=== PATIENT | female | born 1930 | race Caucasian/White ===

== ENCOUNTER 2017-12-31 01:10 | Inpatient (IN) ==
[2017-12-31] MEDS ORDERED: OXYCODONE Oral CONC 10 MG/0.5 ML ORAL.SYG SL PRN ×3 (03:04→11:47)
[2017-12-31] MEDS ORDERED: Naloxone 0.4 MG/ML INJ IVP PRN ×2 (03:04→11:47)
[2017-12-31] MEDS ORDERED: Ondansetron 4 MG/2 ML VIAL IVP PRN ×2 (03:04→11:47)
[2017-12-31] MEDS ORDERED: D5% in 0.45% NACL 1,000 ML IVC SCH (03:15)
--- NOTE | 2017-12-31 03:16 | Internal Med History&Physical ---
Date of Encounter: 12/31/17 Time of Encounter: 03:00 Internal Medicine - H&P: HPI Chief complaint: Right hip pain Admitted From: Home Plans for Post Hospital Care: Home History of present illness: Ms. Hester is a 87 year old female transferred from [place] emergency room for right hip fracture. Patient to present to emergency room for right hip pain. Past medical history is significant for hypothyroidism, GERD, and dementia. I saw patient in floor. Patient is awake alert, oriented 3. Patient told me she missed her steps and fell. She complained right hip pain. She denies loss of consciousness during fall. She denies head or neck injury. She denies other part of body having pain. Patient was found right hip fracture by x-ray in [facility] emergency room. Orthopedic surgery consult was called by ER. Patient was transferred to our hospital for further management. Patient denies chest pain, shortness of breath, nausea, or fever. Patient denies history of CAD, diabetes, COPD, CVA, or hypertension. I have discussed CODE STATUS with patient. Although there is a signed paper in the transfer documentation shows DNR CCA, Patient clearly told me that she would like to have CPR if cardiac arrest happens. Will place patient on full code. Past Med Surg Social Fam HX - Past Medical History Medical history: dementia, GERD, thyroid disease Psychiatric history: no psych history - Past Surgical History Surgical History: non-contributory - Social History Smoking Status: Never smoker Smokeless Tobacco Status: No Alcohol use: none Drug use: none - Family History Mother History Unknown: Yes Internal Medicine - H&P: Meds Acetaminophen [Tylenol] 650 mg PO Q4HR PRN 12/30/17 [History] Bisacodyl [Dulcolax] 10 mg RC DAILY 12/30/17 [History] Buspirone HCl [Buspar] 5 mg PO BID 12/30/17 [History] Gabapentin [Neurontin] 100 mg PO HS 12/30/17 [History] Guaifenesin [Tussin] 200 mg PO Q4H PRN 12/30/17 [History] HydrOXYzine 25 mg PO HS 12/30/17 [History] Levothyroxine [Synthroid] 100 mcg PO 0630 12/30/17 [History] Magnesium Citrate 296 ml PO PRN PRN 12/30/17 [History] Magnesium Hydroxide [Milk of Magnesia] 1,200 mg PO QAM PRN 12/30/17 [History] Meloxicam [Mobic] 7.5 mg PO DAILY 12/30/17 [History] Memantine HCl [Namenda Xr] 28 mg PO QAM 12/30/17 [History] Omeprazole [PriLOSEC] 40 mg PO DAILY 12/30/17 [History] Oxybutynin [Ditropan] 5 mg PO DAILY PRN 12/30/17 [History] Sennosides [Senna] 2 tab PO BID 12/30/17 [History] Sertraline [Zoloft] 25 mg PO DAILY 12/30/17 [History] Tramadol HCl [Ultram] 50 mg PO HS 12/30/17 [History] 3 Allergy/AdvReac Type Severity Reaction Status Date / Time Penicillins Allergy Unknown See Verified 12/09/16 11:38 Comments nitrofurantoin Allergy Anaphylaxis Verified 04/20/17 12:09 [From Macrobid] All Systems PM: A 10-system review of systems was performed and is negative for pertinent findings except as documented above in the HPI. - Constitutional General appearance: Present: A&O X 3, no acute distress, answers questions appropriately - Head Head exam: Present: atraumatic, normocephalic - Eye Eye exam: Present: PERRL, conjuntiva pink, sclera anicteric Pupils: Present: PERRL - Neck Neck exam general surgery: Present: supple, trachea midline. Absent: lymphadenopathy - Respiratory Respiratory exam: Present: CTAB. Absent: accessory muscle use, rales, rhonchi, wheezes - Cardiovascular Cardiovascular exam: Present: RRR, +S1, +S2. Absent: diastolic murmur, gallop, rubs, systolic murmur - GI/Abdominal GI/Abdominal exam: Present: normal bowel sounds, soft, no peritoneal signs. Absent: distended, tenderness - Extremities Exam Extremities exam: Present: warm, radial pulses palpable and symmetrical. Absent : calf tenderness, cyanotic, full ROM (Right hip Range of movement limited due to pain. Right popliteal pulse is 2+), pedal edema - Neurological Exam Neurological exam: Present: CN II-XII intact, oriented X3, no focal deficits. Absent: pronater drift, facial droop, speech deficit - Skin Skin exam: Present: dry, intact - Assessment and plan (1) DVT prophylaxis Current Visit: Yes Status: Acute Assessment and plan: EPCD, will start anticoagulation after surgery (or if orthopedic decided not doing surgery). (2) Closed right hip fracture Current Visit: No Status: Acute Assessment and plan: Patient has right hip fracture due to mechanical fall. - Place patient on nothing by mouth, IV fluid - Pain management - Orthopedic consult - EKG and chest x-ray for preoperative preparation. - CBC, BMP, PT/INR, Type/screen has been done in [facility] emergency room Qualifiers: Encounter type: initial encounter Qualified Code(s): S72.001A - Fracture of unspecified part of neck of right femur, initial encounter for closed fracture - Time Spent With Patient Total time spent is greater than 50% in coordination of care (as documented) at patient's floor/unit and/or counseling patient: 40 min Greater than 35 minutes
[2017-12-31] MEDS ORDERED: *HR* FentaNYL (PF) 100 MCG/2 ML VIAL ONE (07:47)
[2017-12-31] MEDS ORDERED: Lidocaine -MPF 2% 2 ML VIAL ONE (07:47)
[2017-12-31] MEDS ORDERED: *HR* Propofol 200 MG/20 ML VIAL IVP ONE ×2 (07:47→10:39)
--- NOTE | 2017-12-31 07:58 | Anesthesia Evaluation PreOp ---
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 History: Other (dementia) Other Medical History: Thyroid, GERD Anesthesia History: No Prior Anesthetic Complications Alcohol Use: none Drug use: none Medications and Allergies Acetaminophen [Tylenol] 650 mg PO Q4HR PRN 12/30/17 [History] Bisacodyl [Dulcolax] 10 mg RC DAILY 12/30/17 [History] Buspirone HCl [Buspar] 5 mg PO BID 12/30/17 [History] Gabapentin [Neurontin] 100 mg PO HS 12/30/17 [History] Guaifenesin [Tussin] 200 mg PO Q4H PRN 12/30/17 [History] HydrOXYzine 25 mg PO HS 12/30/17 [History] Levothyroxine [Synthroid] 100 mcg PO 0630 12/30/17 [History] Magnesium Citrate 296 ml PO PRN PRN 12/30/17 [History] Magnesium Hydroxide [Milk of Magnesia] 1,200 mg PO QAM PRN 12/30/17 [History] Meloxicam [Mobic] 7.5 mg PO DAILY 12/30/17 [History] Memantine HCl [Namenda Xr] 28 mg PO QAM 12/30/17 [History] Omeprazole [PriLOSEC] 40 mg PO DAILY 12/30/17 [History] Oxybutynin [Ditropan] 5 mg PO DAILY PRN 12/30/17 [History] Sennosides [Senna] 2 tab PO BID 12/30/17 [History] Sertraline [Zoloft] 25 mg PO DAILY 12/30/17 [History] Tramadol HCl [Ultram] 50 mg PO HS 12/30/17 [History] 3 Allergy/AdvReac Type Severity Reaction Status Date / Time Penicillins Allergy Unknown See Verified 12/09/16 11:38 Comments nitrofurantoin Allergy Anaphylaxis Verified 04/20/17 12:09 [From Macrobid] - Meds/Allergy Pre-op Review Medications Reviewed: Yes Allergies Reviewed: Yes Beta Blockers on Current Med List: No Anesthesia Results - Labs Laboratory Tests 12/31/17 12/31/17 12/31/17 00:25 00:25 00:25 WBC 9.1 Hgb 10.7 L Hct 32.1 L Plt Count 265 PT 11.0 INR 1.0 APTT 31.3 Sodium 136 Potassium 4.0 Chloride 104 Carbon Dioxide 27 BUN 18 Creatinine 1.17 Est GFR ( Amer) 53 L Est GFR (Non-Af Amer) 44 L BUN/Creatinine Ratio 15 Glucose 133 H Calculated Osmolality 286 Calcium 9.0 - Imaging EKG: report reviewed, image reviewed (SINUS RHYTHM WITH OCCASIONAL SUPRAVENTRICULAR PREMATURE COMPLEXES) Anesthesia Exam Last Vital Signs Temp 98.1 F 12/31/17 07:49 Pulse 67 12/31/17 07:49 Resp 16 12/31/17 07:49 BP 101/61 12/31/17 07:49 Pulse Ox 94 12/31/17 07:49 Weight: 61 kg NPO (# of Hours): > 8 hrs - HEENT Pupil (Motor): Pupils equal, EOMI Mallampati: III Teeth: Edentulous Oral Opening: Greater than 3 - FIRER ELECT[employer] LOCOMOT[employer] LOC: Oriented - Cardiac Rhythm: Regular Murmur: None - Pulmonary Breath Sounds: bilateral Clear Respiratory Effort: Symmetrical Anesthesia Assess/Plan ASA Score: 3 Modified Shubham Scale for Level of Consciousness: Cooperative, oriented, and tranquil Anesthetic Plan: General Monitoring Plan: Standard Monitors Recovery Plan: PACU
[2017-12-31] MEDS ORDERED: Acetaminophen 325 MG TABLET PO PRN ×2 (08:42→11:47)
--- NOTE | 2017-12-31 08:44 | Internal Med Progress Note ---
Date of Encounter: 12/31/17 Time of Encounter: 08:39 - Assessment and plan (1) Closed right hip fracture Current Visit: No Status: Acute Assessment and plan: Right hip impacted subcapital fracture due to a mechanical fall. - Orthopedic consulted, scheduled for surgery today NPO IVF oxycodone check a UA Qualifiers: Encounter type: initial encounter Qualified Code(s): S72.001A - Fracture of unspecified part of neck of right femur, initial encounter for closed fracture (2) Meningioma Current Visit: Yes Status: Acute Assessment and plan: MRI of the brain from March 2017 showed:Intraventricular lobulated mass centered at the left lateral ventricular trigone. The signal characteristics and location favor a meningioma, although the lobulated appearance is atypical. No evidence of flow void within the mass to suggest arteriovenous malformation. Lymphoma is considered less likely given the intraventricular location. There is no obstructive hydrocephalus. (3) Compression fracture Current Visit: Yes Status: Acute Assessment and plan: History of T12 vertebral compression fracture (4) Hypothyroidism Current Visit: Yes Status: Acute Assessment and plan: Continue levothyroxine Qualifiers: Hypothyroidism type: unspecified Qualified Code(s): E03.9 - Hypothyroidism , unspecified (5) DVT prophylaxis Current Visit: Yes Status: Acute Assessment and plan: EPCD - Time Spent With Patient Total time spent is greater than 50% in coordination of care (as documented) at patient's floor/unit and/or counseling patient: - Subjective Interval history: Complains of right hip pain, denies any chest pain or shortness of breath, no abdominal pain dysuria or diarrhea - Constitutional Vitals: Temp Pulse Resp BP Pulse Ox 98.1 F 67 16 101/61 94 12/31/17 07:49 12/31/17 07:49 12/31/17 07:49 12/31/17 07:49 12/31/17 07:49 General appearance: Present: A&O X 3, no acute distress, answers questions appropriately - Head Head exam: Present: atraumatic, normocephalic - Eye Eye exam: Present: PERRL, conjuntiva pink, sclera anicteric Pupils: Present: PERRL - Neck Neck exam general surgery: Present: supple, trachea midline. Absent: lymphadenopathy - Respiratory Respiratory exam: Present: CTAB. Absent: accessory muscle use, rales, rhonchi, wheezes - Cardiovascular Cardiovascular exam: Present: RRR, +S1, +S2. Absent: diastolic murmur, gallop, rubs, systolic murmur - GI/Abdominal GI/Abdominal exam: Present: normal bowel sounds, soft, no peritoneal signs. Absent: distended, tenderness - Extremities Exam Extremities exam: Present: warm, radial pulses palpable and symmetrical. Absent : calf tenderness, cyanotic, pedal edema Additional comments: Right hip swelling, no ecchymosis or deformities - Neurological Exam Neurological exam: Present: CN II-XII intact, oriented X3, no focal deficits. Absent: pronater drift, facial droop, speech deficit - Skin Skin exam: Present: dry, intact Internal Medicine: Result - Impressions Impressions Chest X-Ray 12/31/17 03:10 IMPRESSION: No acute disease. D/ / Jethro Samson MD / Jethro Samson MD Interpreting Provider: Jethro Samson MD Consult Discharge Plan - Plan Referrals: Justen Bryant MD [Primary Care Provider] -
[2017-12-31] MEDS ORDERED: Ringers Solution, Lactated 1,000 ML ONE (08:59)
--- NOTE | 2017-12-31 09:22 | Orthopedic Consult Note ---
Date of Encounter: 12/31/17 Time of Encounter: 09:20 Assessment and Plan (1) Closed right hip fracture Current Visit: No Status: Acute The diagnosis and treatment options were discussed with the patient. She has a valgus impacted subcapital right femoral neck fracture. She normally ambulance with a walker and so to enable her to get out of bed, ambulate and for pain control we do recommend surgical fixation of the fracture. The patient has elected to proceed with right hip percutaneous pinning at this time. The risks and benefits of the procedure were fully explained in detail, including but not limited to the risk of infection, neurovascular injury, continued pain or stiffness, failure of surgery, reinjury, or need for additional surgery, DVT, PE , general risks of anesthesia and loss of limb or life. No guarantees were given or implied and all questions were answered. The patient understands all the risks and does wish to proceed with written consent. Surgery will be scheduled in a timely manner. Qualifiers: Encounter type: initial encounter Qualified Code(s): S72.001A - Fracture of unspecified part of neck of right femur, initial encounter for closed fracture History of Present Illness HPI: Ms. Hester is a 87 year old female with a PMHx hypothyroidism, GERD, and dementia who had a mechanical fall at her assisted living facility last night. She had a fall onto her right side and had right hip pain afterwards. She states she tripped over the carpet when walking with her walker. She denies any chest pain, shortness of breath, or blacking out prior to the fall. She was brought in and transferred from the [facility] emergency room with a diagnosis of a right femoral neck fracture. Denies any pain in any other extremity. No chest pain, shortness of breath, neck pain or neuro symptoms currently. Typically ambulates in a walker. Past Med Surg Social Fam HX - Past Medical History Medical history: dementia, GERD, thyroid disease Psychiatric history: no psych history - Past Surgical History Surgical History: non-contributory - Social History Smoking Status: Never smoker Smokeless Tobacco Status: No Alcohol use: none Drug use: none - Family History Mother History Unknown: Yes Medications and Allergies Acetaminophen [Tylenol] 650 mg PO Q4HR PRN 12/30/17 [History] Bisacodyl [Dulcolax] 10 mg RC DAILY 12/30/17 [History] Buspirone HCl [Buspar] 5 mg PO BID 12/30/17 [History] Gabapentin [Neurontin] 100 mg PO HS 12/30/17 [History] Guaifenesin [Tussin] 200 mg PO Q4H PRN 12/30/17 [History] HydrOXYzine 25 mg PO HS 12/30/17 [History] Levothyroxine [Synthroid] 100 mcg PO 0630 12/30/17 [History] Magnesium Citrate 296 ml PO PRN PRN 12/30/17 [History] Magnesium Hydroxide [Milk of Magnesia] 1,200 mg PO QAM PRN 12/30/17 [History] Meloxicam [Mobic] 7.5 mg PO DAILY 12/30/17 [History] Memantine HCl [Namenda Xr] 28 mg PO QAM 12/30/17 [History] Omeprazole [PriLOSEC] 40 mg PO DAILY 12/30/17 [History] Oxybutynin [Ditropan] 5 mg PO DAILY PRN 12/30/17 [History] Sennosides [Senna] 2 tab PO BID 12/30/17 [History] Sertraline [Zoloft] 25 mg PO DAILY 12/30/17 [History] Tramadol HCl [Ultram] 50 mg PO HS 12/30/17 [History] 3 Allergy/AdvReac Type Severity Reaction Status Date / Time Penicillins Allergy Unknown See Verified 12/09/16 11:38 Comments nitrofurantoin Allergy Anaphylaxis Verified 04/20/17 12:09 [From Macrobid] All Systems Reviewed: The remainder of the systems were reviewed and are negative Physical Exam - Constitutional Vitals: Temp Pulse Resp BP Pulse Ox 98.1 F 67 16 101/61 94 12/31/17 07:49 12/31/17 07:49 12/31/17 07:49 12/31/17 07:49 12/31/17 07:49 Exam: Consult Exam: Constitutional -Vitals reviewed -The patient is well developed and well nourished. Psychiatric -The patient is fully alert and oriented x 3. Respiratory: -Respiratory effort normal Abdomen: -Soft abdomen -Non tender -Non distended: Left upper extremity: -No deformities. The overlying skin is intact. No obvious signs of acute trauma. -No tenderness to palpation throughout. -No significant pain with passive motion of the shoulder, elbow, wrist, and fingers within the limits of the bed. -Able to make an "OK" sign, cross the index and long fingers, and extend the thumb. -Sensation grossly intact to light touch throughout the median, radial, and ulnar distributions. -Radial pulse is present; Fingers have good capillary refill. Right upper extremity: -No deformities. The overlying skin is intact. No obvious signs of acute trauma. -No tenderness to palpation throughout. -No significant pain with passive motion of the shoulder, elbow, wrist, and fingers within the limits of the bed. -Able to make an "OK" sign, cross the index and long fingers, and extend the thumb. -Sensation grossly intact to light touch throughout the median, radial, and ulnar distributions. -Radial pulse is present; Fingers have good capillary refill. Left lower extremity: -No deformities. The overlying skin is intact. No obvious signs of acute trauma. -No tenderness to palpation throughout. -No pain with passive motion of the hip, knee, ankle, and toes within the limits of the bed. -No pain with axial loading of the thigh. -Able to dorsiflex and plantarflex the ankle and toes. -Sensation is grossly intact to light touch throughout the sural, saphenous, superficial peroneal, and deep peroneal distributions. -Toes have good capillary refill. Right lower extremity: -No deformities. The overlying skin is intact. No obvious signs of acute trauma. -No tenderness to palpation over the femur, knee, tibia foot or ankle. -Pain with logroll of the right hip and axial loading of the thigh -No pain with passive motion of the knee, ankle, and toes within the limits of the bed. -Able to dorsiflex and plantarflex the ankle and toes. -Sensation is grossly intact to light touch throughout the sural, saphenous, superficial peroneal, and deep peroneal distributions. -Toes have good capillary refill. Results - Labs Labs: All other labs normal. - Diagnostic results Hip x-ray: report reviewed, image reviewed (Valgus impacted fracture of the right femoral neck) Consult Discharge Plan - Plan Referrals: Justen Bryant MD [Primary Care Provider] -
[2017-12-31] MEDS ORDERED: *HR* OxyCODONE Immed Rel 5 MG TABLET PO PRN (09:43)
[2017-12-31] MEDS ORDERED: traMADol 50 MG TABLET PO PRN (09:43)
[2017-12-31] MEDS ORDERED: Acetaminophen IV 1,000 MG/100 ML INFUS..BTL ONE (09:47)
[2017-12-31] MEDS ORDERED: Clindamycin 600 MG/50 ML 600 MG/50 ML IV.SOLN IVPB ONE (09:53)
[2017-12-31] MEDS ORDERED: *HR* PHENYLEPHRINE 1,000 MCG/10 ML SYRINGE IVP ONE (10:21)
[2017-12-31] MEDS ORDERED: EPHEDrine 50 MG/ML VIAL ONE (10:22)
[2017-12-31] MEDS ORDERED: *HR* Succinylcholine 200 MG/10 ML VIAL IVP ONE (10:28)
[2017-12-31] MEDS ORDERED: Dexamethasone 4 MG/ML VIAL ONE (10:34)
[2017-12-31] MEDS ORDERED: Ondansetron 4 MG/2 ML VIAL ONE (10:34)
--- NOTE | 2017-12-31 10:51 | Orthopedic Operative Note ---
Date of procedure: 12/31/17 Procedure: Procedure: R hip percutaneous pinning Preoperative Diagnosis: R valgus impacted subcapital femoral neck fracture Postoperative Diagnosis: Same Surgeon: Win Keller MD Anesthesia: General EBL: 20 cc Complications: None Components used: Sushma 6.5 mm partially threaded cannulated screws INDICATIONS: This is a 87 yo M who had a mechanical fall last night and sustained a right non-displaced valgus impacted subcapital femoral neck fracture. Surgical fixation was recommended to allow for early mobilization and pain control. After discussing the procedure at length, the patient elected for operative management with a percutaneous pinning of the right hip. The risks and benefits of the procedure were fully explained. Those risks include but are not limited to, infection, neurovascular injury, continued pain, arthritis, stiffness, further injury, need for further surgery, DVT, PE, loss of limb, and loss of life. The patient understood all of these risks and wished to proceed. Informed consent was obtained. No guarantees were stated or implied. OPERATIVE REPORT: The patient was identified in the holding area. The right lower extremity was marked, the patient was taken to the operating room and general anesthetic was administered on the hospital bed. The patients head, neck and airway were protected by anesthesia through the case. The patient was then transferred to the fracture table and placed in the supine position with a well padded perineal post. All bony prominences were well padded. The right leg was attached to the traction device on the fracture bed. The left leg was then placed in a well leg milan and positioned out of the way of fluoroscopy. We then obtained fluoroscopic images in AP and lateral planes confirming fracture reduction and alignment. The right lower extremity was then prepped and draped in the normal manner. Preoperative antibiotics were given prior to incision. A surgical time out protocol was then performed. We percutaneously placed a guidepin centrally and slightly inferior across the femoral neck up to the head, ensuring no penetration of the femoral head. We then made a 3 cm incision proximally from the guidepin, and placed 2 more guidepins, proximal and anterior and posterior to the first pin. Placement of the guidepins were confirmed on AP and lateral fluoroscopy. We then measured the appropriate screw lengths, and drilled and placed 3 6.5mm cannulated screws across the fracture site in an inverted triangle pattern. At this point we obtained final fluoroscopic images of the right hip in both AP and lateral planes. We then thoroughly irrigated the wound and closed the subcutaneous tissues with 2-0 stratafix. Skin was closed with 3-0 stratafix. We then placed sterile dressings the patient was awoken by anesthesia and transferred to PACU in stable condition. Patient tolerated the procedure well. Postop plan: The patient will be transferred back to the floor and will be weight-bearing as tolerated postop. Was there an promotions assistant sales marketing present: No Estimated blood loss (cc): 20
--- NOTE | 2017-12-31 11:32 | Anesthesia Evaluation Post Op ---
Date of Encounter: 12/31/17 Time of Encounter: 11:31 - Vital Signs Vital Signs: Last Vital Signs Temp 98.1 F 12/31/17 11:02 Pulse 87 12/31/17 11:22 Resp 16 12/31/17 11:22 BP 94/37 12/31/17 11:22 Pulse Ox 100 12/31/17 11:22 - Lungs Lungs: Clear Ascult./Percussion - Airway Airway: Non-obstructed - Cardiovascular Regular Rate - Mental Status Mental Status: Alert & Oriented, Answers Appropriately - Pain Pain Scale: 4 - Nausea Vomiting Nausea Vomiting: Not Present - Hydration Hydration: Ice chips, Strickland catheter - Discharge PostOp Status: Transfer Patient to floor
[2017-12-31] MEDS: OXYCODONE Oral CONC 10 MG/0.5 ML ORAL.SYG SL PRN (13:32)
[2017-12-31 14:06] LABS: Bilirubin,Urine Negative (Negative); Blood,Urine Negative (Negative); Clarity,Urine Clear (Clear); Color,Urine Yellow (Yellow); Glucose,Urine (UA) Normal (Normal); Ketones,Urine Negative (Negative); Leukocyte Esterase,Urine Moderate (Negative); Nitrite,Urine Negative (Negative); Protein,Urine Negative (Neg-Trace); Specific Gravity,Urine 1.012 (1.010-1.025); Urobilinogen,Urine Normal (Normal)
[2017-12-31 14:07] LABS: Bacteria,Urine None Seen per hpf (None-Few); Hyaline Casts,Urine None Seen per lpf (None-Few); RBC,Urine 0-3 per hpf (0-3); Squamous Epithelial Cell,Urine Few per lpf (None-Few); WBC,Urine 15-30 per hpf (0-3)
[2017-12-31] MEDS: D5% in 0.45% NACL 1,000 ML IVC SCH (14:42)
[2017-12-31] MEDS ORDERED: Levofloxacin 750 MG/150 ML 750 MG/150 ML BAG IVPB SCH (15:06)
[2017-12-31] MEDS ORDERED: Levofloxacin 750 MG/150 ML 750 MG/150 ML BAG IVPB ONE (15:15)
[2017-12-31] MEDS: Clindamycin 900 MG/50 ML 900 MG/50 ML IV.SOLN IVPB SCH (15:41)
[2017-12-31] MEDS: hydrOXYzine pamoate 25 MG CAPSULE PO SCH (20:20)
[2017-12-31] MEDS: Gabapentin 100 MG CAPSULE PO SCH (20:20)
[2017-12-31] MEDS ORDERED: Gabapentin 100 MG CAPSULE PO SCH (21:00)
[2018-01-01] MEDS: Clindamycin 900 MG/50 ML 900 MG/50 ML IV.SOLN IVPB SCH (00:02)
[2018-01-01] MEDS: *HR* HYDROcodone/Acet 5/325 mg TABLET PO PRN ×3 (00:47→13:39)
[2018-01-01 01:14] LABS: Hematocrit 26.5 % (35.3-44.9); Hemoglobin 8.5 g/dL (11.5-15.4); Mean Corpuscular HGB Conc 32.1 g/dL (31.6-35.5); Mean Corpuscular Hemoglobin 30.8 pg (28.0-33.3); Mean Platelet Volume 9.2 fL (9.4-12.4); Platelet Count 239 K/mcL (140-400); Red Blood Count 2.76 M/mcL (3.82-4.97)
[2018-01-01 01:33] LABS: Calcium 7.9 mg/dL (8.6-10.3); Potassium 4.5 mEq/L (3.5-5.1)
[2018-01-01] MEDS: D5% in 0.45% NACL 1,000 ML IVC SCH (07:06)
[2018-01-01] MEDS: *HR* Enoxaparin 30 MG/0.3 ML SYRINGE SQ SCH (07:36)
--- NOTE | 2018-01-01 07:52 | Orthopedics Progress Note ---
Date of Encounter: 01/01/18 Time of Encounter: 07:50 - Assessment and Plan (1) Closed right hip fracture Current Visit: No Status: Inactive Qualifiers: Encounter type: initial encounter Qualified Code(s): S72.001A - Fracture of unspecified part of neck of right femur, initial encounter for closed fracture Subjective Interval history: S: No overnight events. Pain in right hip - tolerable. No CP/SOB or calf pain. No numbness/tingling. No fevers or chills. O: AFVSS Hgb 8.5 GEN: NAD, AAOx3 RLE: Dressing c/d/i DNVI to sensory and motor exam BCR over toes No calf pain or TTP A/P: POD#1 s/p right hip percutaneous pinning -WBAT with PT -DVT ppx per hospitalist, currently on lovenox -PO pain control -Discharge planning Objective Vital signs: Vital Signs Temp Pulse Resp BP Pulse Ox 01/01/18 06:34 97.7 F 83 18 100/55 93 01/01/18 05:10 97.6 F 62 14 99/60 96 01/01/18 01:17 98.0 F 66 16 94/57 98 12/31/17 19:11 97.5 F L 73 14 93/51 100 12/31/17 16:56 97.9 F 71 15 110/74 100 12/31/17 14:35 98.3 F 71 16 91/50 100 12/31/17 13:19 98.0 F 68 16 105/62 98 12/31/17 12:10 96.9 F L 73 14 94/51 100 12/31/17 11:52 97.8 F 71 16 97/46 100 12/31/17 11:42 71 16 93/48 100 12/31/17 11:32 98.7 F 69 16 94/51 100 12/31/17 11:22 87 16 94/37 100 12/31/17 11:12 87 16 97/58 100 12/31/17 11:02 98.1 F 88 14 89/47 93 Intake and Output 12/31/17 12/31/17 01/01/18 15:59 23:59 07:59 Intake Total 0 / 0 290 / 290 Output Total 20 / 20 400 / 400 1200 / 1200 Balance -20 / -20 -110 / -110 -1200 / -1200 Intake: IV Fluids 50 / 50 Cleocin Premix 900 MG/50 ML 900 50 / 50 mg In 50 ml @ 50 mls/hr IVPB Q8HR [facility] Rx#:[id number] Oral 0 / 0 240 / 240 Output: Estimated Blood Loss 20 / 20 Catheter 400 / 400 1200 / 1200 Other: Meal Dinner Percent of Meal Consumed 65% # Voids 1 - Labs CBC & BMP: 01/01/18 00:56 01/01/18 00:56 Labs: Abnormal lab results RBC 2.76 M/mcL (3.82-4.97) L 01/01/18 00:56 Hgb 8.5 g/dL (11.5-15.4) L D 01/01/18 00:56 Hct 26.5 % (35.3-44.9) L 01/01/18 00:56 MPV 9.2 fL (9.4-12.4) L 01/01/18 00:56 Sodium 133 mEq/L (136-145) L 01/01/18 00:56 Creatinine 1.34 mg/dL (0.60-1.20) H 01/01/18 00:56 Est GFR ( Amer) 45 (> 60) L 01/01/18 00:56 Est GFR (Non-Af Amer) 37 (> 60) L 01/01/18 00:56 Glucose 133 mg/dL (70-105) H 01/01/18 00:56 Calcium 7.9 mg/dL (8.6-10.3) L 01/01/18 00:56 Ur Leukocyte Esterase Moderate (Negative) H 12/31/17 13:25 Urine Microscopic WBC 15-30 per hpf (0-3) H 12/31/17 13:25 Ur Culture Indicated? YES (NO) A 12/31/17 13:25 - VTE Documentation of Mechanical Device: Intermittent pneumatic compression device Consult Discharge Plan - Plan Referrals: Justen Bryant MD [Primary Care Provider] -
[2018-01-01 09:12] LABS: Hematocrit 28.2 % (35.3-44.9); Hemoglobin 9.4 g/dL (11.5-15.4); Mean Corpuscular HGB Conc 33.3 g/dL (31.6-35.5); Mean Corpuscular Hemoglobin 32.2 pg (28.0-33.3); Mean Corpuscular Volume 96.6 fL (83.0-100.0); Mean Platelet Volume 8.9 fL (9.4-12.4); Platelet Count 249 K/mcL (140-400); Red Blood Count 2.92 M/mcL (3.82-4.97); Red Cell Distribution Width 12.1 % (11.5-14.5)
[2018-01-01 09:22] LABS: Calcium 8.4 mg/dL (8.6-10.3); Potassium 4.2 mEq/L (3.5-5.1)
[2018-01-01] MEDS: 0.9 % Sodium Chloride 1,000 ML IVC SCH ×2 (09:25→23:04)
[2018-01-01] MEDS ORDERED: *HR* Enoxaparin 40 MG/0.4 ML SYRINGE SQ SCH (10:55)
--- NOTE | 2018-01-01 15:52 | Internal Med Progress Note ---
Date of Encounter: 01/01/18 Time of Encounter: 15:50 - Assessment and plan (1) Closed right hip fracture Current Visit: No Status: Inactive Assessment and plan: Right hip impacted subcapital fracture due to a mechanical fall s/p percutaneous pinning on 12/31/17 - Orthopedic follow up IVF oxycodone Qualifiers: Encounter type: initial encounter Qualified Code(s): S72.001A - Fracture of unspecified part of neck of right femur, initial encounter for closed fracture (2) UTI (urinary tract infection) Current Visit: Yes Status: Acute Assessment and plan: Hx of recurrent UTI Culture growing gram-negative rods Continue Levaquin day #2, allergic to penicillin Qualifiers: Urinary tract infection type: acute cystitis Hematuria presence: without hematuria Qualified Code(s): N30.00 - Acute cystitis without hematuria (3) Meningioma Current Visit: Yes Status: Acute Assessment and plan: MRI of the brain from March 2017 showed:Intraventricular lobulated mass centered at the left lateral ventricular trigone. The signal characteristics and location favor a meningioma, although the lobulated appearance is atypical. No evidence of flow void within the mass to suggest arteriovenous malformation. Lymphoma is considered less likely given the intraventricular location. There is no obstructive hydrocephalus. (4) Compression fracture Current Visit: Yes Status: Acute Assessment and plan: History of T12 vertebral compression fracture (5) Hypothyroidism Current Visit: Yes Status: Acute Assessment and plan: Continue levothyroxine Qualifiers: Hypothyroidism type: unspecified Qualified Code(s): E03.9 - Hypothyroidism , unspecified (6) DVT prophylaxis Current Visit: Yes Status: Acute Assessment and plan: lovenox (7) CKD (chronic kidney disease) stage 3, GFR 30-59 ml/min Current Visit: Yes Status: Acute - Time Spent With Patient Total time spent is greater than 50% in coordination of care (as documented) at patient's floor/unit and/or counseling patient: - Subjective Interval history: Complains of right hip pain after the surgery, disoriented in time and place, denies any chest pain or shortness of breath, no abdominal pain dysuria or diarrhea - Constitutional Vitals: Temp Pulse Resp BP Pulse Ox 98.1 F 69 18 105/66 94 01/01/18 15:20 01/01/18 15:20 01/01/18 15:20 01/01/18 15:20 01/01/18 15:20 General appearance: Present: A&O X 1, no acute distress, answers questions appropriately Exam: - Head Head exam: Present: atraumatic, normocephalic - Eye Eye exam: Present: PERRL, conjuntiva pink, sclera anicteric Pupils: Present: PERRL - Neck Neck exam general surgery: Present: supple, trachea midline. Absent: lymphadenopathy - Respiratory Respiratory exam: Present: CTAB. Absent: accessory muscle use, rales, rhonchi, wheezes - Cardiovascular Cardiovascular exam: Present: RRR, +S1, +S2. Absent: diastolic murmur, gallop, rubs, systolic murmur - GI/Abdominal GI/Abdominal exam: Present: normal bowel sounds, soft, no peritoneal signs. Absent: distended, tenderness - Extremities Exam Extremities exam: Present: warm, radial pulses palpable and symmetrical. Absent : calf tenderness, cyanotic, pedal edema Additional comments: Right hip surgical wound without evidence of infection or hematoma, no ecchymosis - Neurological Exam Neurological exam: Present: CN II-XII intact, oriented X1, no focal deficits. Absent: pronater drift, facial droop, speech deficit - Skin Skin exam: Present: dry, intact Internal Medicine: Result - Labs CBC & Chem 7: 01/01/18 08:51 01/01/18 08:51 Labs: Short CBC 01/01/18 01/01/18 Range/Units 00:56 08:51 WBC 7.6 7.0 (4.3-11.1) K/mcL Hgb 8.5 L D 9.4 L (11.5-15.4) g/dL Hct 26.5 L 28.2 L (35.3-44.9) % Plt Count 239 249 (140-400) K/mcL BMP 01/01/18 01/01/18 00:56 08:51 Sodium 133 L 138 Potassium 4.5 4.2 Chloride 103 105 Carbon Dioxide 23 27 BUN 19 20 Creatinine 1.34 H 1.25 H Glucose 133 H 125 H Calcium 7.9 L 8.4 L - VTE Documentation of Mechanical Device: Intermittent pneumatic compression device Consult Discharge Plan - Plan Referrals: Justen Bryant MD [Primary Care Provider] -
[2018-01-01] MEDS: OXYCODONE Oral CONC 10 MG/0.5 ML ORAL.SYG SL PRN ×2 (16:10→23:04)
[2018-01-01] MEDS: Gabapentin 100 MG CAPSULE PO SCH (20:30)
[2018-01-01] MEDS: hydrOXYzine pamoate 25 MG CAPSULE PO SCH (20:30)
[2018-01-02 02:17] LABS: Hematocrit 28.7 % (35.3-44.9); Hemoglobin 9.2 g/dL (11.5-15.4); Mean Corpuscular HGB Conc 32.1 g/dL (31.6-35.5); Mean Corpuscular Hemoglobin 31.2 pg (28.0-33.3); Mean Corpuscular Volume 97.3 fL (83.0-100.0); Mean Platelet Volume 9.3 fL (9.4-12.4); Platelet Count 240 K/mcL (140-400); Red Blood Count 2.95 M/mcL (3.82-4.97); Red Cell Distribution Width 12.4 % (11.5-14.5)
[2018-01-02 02:44] LABS: Calcium 8.4 mg/dL (8.6-10.3); Potassium 4.5 mEq/L (3.5-5.1)
[2018-01-02] MEDS: *HR* HYDROcodone/Acet 5/325 mg TABLET PO PRN (03:42)
--- NOTE | 2018-01-02 06:34 | Electrocardiograph Report ---
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
[2018-01-02] MEDS: *HR* Enoxaparin 30 MG/0.3 ML SYRINGE SQ SCH (10:07)
--- NOTE | 2018-01-02 10:16 | Orthopedics Progress Note ---
Date of Encounter: 01/02/18 Time of Encounter: 08:00 - Assessment and Plan (1) Closed right hip fracture Current Visit: No Status: Inactive Qualifiers: Encounter type: initial encounter Qualified Code(s): S72.001A - Fracture of unspecified part of neck of right femur, initial encounter for closed fracture Subjective Interval history: S: No overnight events. No CP/SOB or calf pain. No numbness/tingling. No fevers or chills. O: AFVSS Hgb 9.2 GEN: NAD, AAOx3 RLE: Dressing c/d/i DNVI to sensory and motor exam BCR over toes No calf pain or TTP A/P: POD 2 s/p right hip percutaneous pinning -WBAT with PT -Continue DVT ppx per hospitalist, currently on lovenox -PO pain control -Discharge planning - SNF when bed available Objective Vital signs: Vital Signs Temp Pulse Resp BP Pulse Ox 01/02/18 06:30 98.4 F 77 16 105/57 92 01/02/18 03:19 101.7 F H 98 18 116/66 01/01/18 22:56 101.0 F H 97 18 125/74 96 01/01/18 18:59 98.7 F 87 16 97/64 92 01/01/18 15:20 98.1 F 69 18 105/66 94 01/01/18 13:24 116/69 01/01/18 11:04 98.3 F 80 18 89/53 93 Intake and Output 01/01/18 01/02/18 01/02/18 23:59 07:59 15:59 Intake Total 1600 / 1600 600 / 600 Balance 1600 / 1600 600 / 600 Intake: IV Fluids 1000 / 1000 0.9 % Sodium Chloride 1,000 ML 1000 / 1000 @ 75 mls/hr IVC .[id number] MITCH Rx #:[id number] Oral 600 / 600 600 / 600 Other: Meal Dinner Breakfast Percent of Meal Consumed 50% 25% # Voids 1 1 - Labs CBC & BMP: 01/02/18 01:35 01/02/18 01:35 Labs: Abnormal lab results RBC 2.95 M/mcL (3.82-4.97) L 01/02/18 01:35 Hgb 9.2 g/dL (11.5-15.4) L 01/02/18 01:35 Hct 28.7 % (35.3-44.9) L 01/02/18 01:35 MPV 9.3 fL (9.4-12.4) L 01/02/18 01:35 Chloride 110 mEq/L (98-107) H 01/02/18 01:35 BUN 25 mg/dL (8-23) H 01/02/18 01:35 Creatinine 1.25 mg/dL (0.60-1.20) H 01/02/18 01:35 Est GFR ( Amer) 49 (> 60) L 01/02/18 01:35 Est GFR (Non-Af Amer) 41 (> 60) L 01/02/18 01:35 Glucose 123 mg/dL (70-105) H 01/02/18 01:35 Calcium 8.4 mg/dL (8.6-10.3) L 01/02/18 01:35 Ur Leukocyte Esterase Moderate (Negative) H 12/31/17 13:25 Urine Microscopic WBC 15-30 per hpf (0-3) H 12/31/17 13:25 Ur Culture Indicated? YES (NO) A 12/31/17 13:25 - VTE Documentation of Mechanical Device: Intermittent pneumatic compression device Consult Discharge Plan - Plan Referrals: Justen Bryant MD [Primary Care Provider] -
--- NOTE | 2018-01-02 13:48 | Discharge Summary ---
- NOTES TO OUTPATIENT PROVIDER Notes to Outpatient Provider: s/p right hip pinning Date of Encounter: 01/02/18 Time of Encounter: 13:46 - Discharge Diagnosis (1) Closed right hip fracture Priority: Primary Status: Acute Qualifiers: Encounter type: initial encounter Qualified Code(s): S72.001A - Fracture of unspecified part of neck of right femur, initial encounter for closed fracture (2) Meningioma Priority: Secondary Status: Chronic (3) Compression fracture Priority: Secondary Status: Chronic (4) Hypothyroidism Priority: Secondary Status: Chronic Qualifiers: Hypothyroidism type: unspecified Qualified Code(s): E03.9 - Hypothyroidism , unspecified (5) UTI (urinary tract infection) Priority: Primary Status: Acute Qualifiers: Urinary tract infection type: acute cystitis Hematuria presence: without hematuria Qualified Code(s): N30.00 - Acute cystitis without hematuria (6) CKD (chronic kidney disease) stage 3, GFR 30-59 ml/min Priority: Secondary Status: Chronic Hospital course: Ms. Hester is a 87 year old female with the above medical problems, who was admitted with right hip pain after a mechanical fall. Right hip x-ray in the emergency room showed acute right subcapital hip fracture. Orthopedic surgery was consulted and patient received right hip percutaneous pinning on 2017. She was noted to have a slight drop in hemoglobin postoperatively, but it is currently stable around 9. Physical and occupational therapy evaluation was completed, recommend ECF placement. Patient is cleared by Ortho for discharge. She was also noted to have UTI with urine culture growing pansensitive Klebsiella. She is being discharged on oral Levaquin to complete a five-day course. She is otherwise medically stable. Discharge discussed with: patient, nurse - Time Spent with Patient Total time spent providing and/or coordinating discharge services: Greater than 30 minutes (45 min) - Discharge Medications Prescriptions: Gabapentin [Neurontin] 100 mg PO HS #5 capsule levoFLOXacin [Levaquin] 500 mg PO Q48H #2 tablet Lidocaine Patch [Lidoderm 5% patch] 1 each TP DAILY #5 adh..patch OXYCODONE Oral CONC [Oxycodone Oral Conc] 10 mg SL Q4H PRN 5 Days oral.syg PRN Reason: Severe Pain Home Medications: Acetaminophen [Tylenol] 650 mg PO Q4HR PRN 12/30/17 [History] Bisacodyl [Dulcolax] 10 mg RC DAILY PRN 12/30/17 [History] Buspirone HCl [Buspar] 5 mg PO BID 12/30/17 [History] Guaifenesin [Tussin] 200 mg PO Q4H PRN 12/30/17 [History] HydrOXYzine 25 mg PO HS 12/30/17 [History] Levothyroxine [Synthroid] 100 mcg PO 0630 12/30/17 [History] Magnesium Citrate 296 ml PO PRN PRN 12/30/17 [History] Magnesium Hydroxide [Milk of Magnesia] 1,200 mg PO QAM PRN 12/30/17 [History] Meloxicam [Mobic] 7.5 mg PO DAILY 12/30/17 [History] Memantine HCl [Namenda Xr] 28 mg PO QAM 12/30/17 [History] Omeprazole [PriLOSEC] 40 mg PO DAILY 12/30/17 [History] Sennosides [Senna] 2 tab PO BID 12/30/17 [History] Sertraline [Zoloft] 25 mg PO DAILY 12/30/17 [History] Oxybutynin Chloride [Ditropan Xl] 5 mg PO DAILY 12/31/17 [History] Enoxaparin [Lovenox] 30 mg SQ 0900 syringe 01/02/18 [Rx] Gabapentin [Neurontin] 100 mg PO HS #5 capsule 01/02/18 [Rx] Lidocaine Patch [Lidoderm 5% patch] 1 each TP DAILY #5 adh..patch 01/02/18 [Rx] OXYCODONE Oral CONC [Oxycodone Oral Conc] 10 mg SL Q4H PRN 5 Days oral.syg [Rx] levoFLOXacin [Levaquin] 500 mg PO Q48H #2 tablet 01/02/18 [Rx] Allergies/Adverse Reactions: 3 Allergy/AdvReac Type Severity Reaction Status Date / Time Penicillins Allergy Unknown See Verified 12/09/16 11:38 Comments nitrofurantoin Allergy Anaphylaxis Verified 04/20/17 12:09 [From Macrobid] Date of admission: 12/31/17 03:04 Primary care physician: Justen Bryant MD Consults: 12/31/17 03:11 Consult to Orthopedic Surgery [CONS] Routine Consulting Provider: [facility] Reason for Consult: Right hip fracture. Dr Keller was called by [facility] Call Completed: Yes 12/31/17 11:47 Consult to Occupational Therapy [CONS] Routine Comment: Evaluate, develop and implement POC Reason for Consult: post hip surgery Does patient have active BEDREST order?: No Is patient medically & hemodynamically stable?: Yes Consult to Orthopedic Navigator [CONS] [CONS] Routine Consult to Physical Therapy [CONS] Routine Comment: Evaluate, develop and implement POC Reason for Consult: post hip surgery Does patient have active BEDREST order?: No Is patient medically & hemodynamically stable?: Yes Consult to Automatic Brine Mixer Operator [CONS] Routine Reason for SW Consult: post -op hip fracture RT Post Op Consult [CONS] Routine Discharging clinician: Ananya Castro Anticipated date of discharge: 01/02/18 - Constitutional Vitals: Temp Pulse Resp BP Pulse Ox 98.0 F 92 16 90/55 93 01/02/18 11:16 01/02/18 11:16 01/02/18 11:16 01/02/18 11:16 01/02/18 11:16 General appearance: Present: A&O X 2, mild distress, answers questions appropriately - Respiratory Respiratory exam: Present: CTAB. Absent: accessory muscle use, rales, rhonchi, wheezes - Cardiovascular Cardiovascular exam: Present: RRR, +S1, +S2. Absent: diastolic murmur, gallop, rubs, systolic murmur - Patient Status Disposition: Transfer SNF Condition: Fair Functional capacity at discharge: uses cane/walker Overall status at discharge: patient is progressing back to baseline - Discharge Instructions Follow Up With: Justen Bryant MD [Primary Care Provider] - Additional Instructions: F/up with PCP in 1-2 weeks F/up with Orthopedics as scheduled - Diet and Activity Activity: as per physical therapy Diet: low salt diet - VTE Documentation of Mechanical Device: Intermittent pneumatic compression device
--- NOTE | 2018-01-02 13:55 | Physician Discharge Referral ---
ExtendedCare Referral Info Transfer To: [facility] Provider in Charge: Ananya Castro Provider in Charge after Transfer: PCP Institutional Level of Care: Skilled - Diagnosis (1) Closed right hip fracture Priority: Primary Status: Acute (2) Meningioma Priority: Secondary Status: Chronic (3) Compression fracture Priority: Secondary Status: Chronic (4) Hypothyroidism Priority: Secondary Status: Chronic (5) UTI (urinary tract infection) Priority: Primary Status: Acute (6) CKD (chronic kidney disease) stage 3, GFR 30-59 ml/min Priority: Secondary Status: Chronic Expected Duration of Placement: LTC Prognosis: Fair Aware of Diagnosis: Patient Aware of Prognosis: Patient - Transfer Medications Prescriptions: Gabapentin [Neurontin] 100 mg PO HS #5 capsule levoFLOXacin [Levaquin] 500 mg PO Q48H #2 tablet Lidocaine Patch [Lidoderm 5% patch] 1 each TP DAILY #5 adh..patch OXYCODONE Oral CONC [Oxycodone Oral Conc] 10 mg SL Q4H PRN 5 Days oral.syg PRN Reason: Severe Pain Home Medications: Acetaminophen [Tylenol] 650 mg PO Q4HR PRN 12/30/17 [History] Bisacodyl [Dulcolax] 10 mg RC DAILY PRN 12/30/17 [History] Buspirone HCl [Buspar] 5 mg PO BID 12/30/17 [History] Guaifenesin [Tussin] 200 mg PO Q4H PRN 12/30/17 [History] HydrOXYzine 25 mg PO HS 12/30/17 [History] Levothyroxine [Synthroid] 100 mcg PO 0630 12/30/17 [History] Magnesium Citrate 296 ml PO PRN PRN 12/30/17 [History] Magnesium Hydroxide [Milk of Magnesia] 1,200 mg PO QAM PRN 12/30/17 [History] Meloxicam [Mobic] 7.5 mg PO DAILY 12/30/17 [History] Memantine HCl [Namenda Xr] 28 mg PO QAM 12/30/17 [History] Omeprazole [PriLOSEC] 40 mg PO DAILY 12/30/17 [History] Sennosides [Senna] 2 tab PO BID 12/30/17 [History] Sertraline [Zoloft] 25 mg PO DAILY 12/30/17 [History] Oxybutynin Chloride [Ditropan Xl] 5 mg PO DAILY 12/31/17 [History] Enoxaparin [Lovenox] 30 mg SQ 0900 syringe 01/02/18 [Rx] Gabapentin [Neurontin] 100 mg PO HS #5 capsule 01/02/18 [Rx] Lidocaine Patch [Lidoderm 5% patch] 1 each TP DAILY #5 adh..patch 01/02/18 [Rx] OXYCODONE Oral CONC [Oxycodone Oral Conc] 10 mg SL Q4H PRN 5 Days oral.syg [Rx] levoFLOXacin [Levaquin] 500 mg PO Q48H #2 tablet 01/02/18 [Rx] Allergies/Adverse Reactions: 3 Allergy/AdvReac Type Severity Reaction Status Date / Time Penicillins Allergy Unknown See Verified 12/09/16 11:38 Comments nitrofurantoin Allergy Anaphylaxis Verified 04/20/17 12:09 [From Macrobid] - Respiratory Orders Smoking Cessation: Smoking cessation has been advised. For more information, call the [employer] Tobacco Quit Line at 7-610-HFKD-NOW. - Ancillary Orders May use pressure relief devices daily prn - Advance Directives Code Status: Full Code - Mobility Orders Ambulate - Rehabiliation Orders Rehab Potential: Fair Rehab Orders: ROM Exercises, Evaluation for Physical Therapy, Evaluation for Occupational Therapy - Diet Orders Cardiac CERTIFICATION: I certify that the transfer of the above named patient to an Extended Care Facility is necessary for the continuing treatment of the diagnosis listed. The above information is true and accurate reflection of patient's current condition. Confidential - Redisclosure prohibited without a patient's written consent.
[2018-01-02 15:13] VITALS: BP 107/66
[2018-01-02] MEDS: OXYCODONE Oral CONC 10 MG/0.5 ML ORAL.SYG SL PRN (15:29)
[2018-01-02] MEDS ORDERED: Levofloxacin 750 MG/150 ML 750 MG/150 ML BAG IVPB SCH (16:00)
[2018-01-02] MEDS ORDERED: Levofloxacin 500 MG/100 ML 500 MG/100 ML BAG IVPB SCH (16:00)
== END 2018-01-02 15:55 | DRG 481 ==
LOC: 3NENU → SUATTDRO 03:04
PROVIDERS: ADMIT Internal Medicine; ATTEND Internal Medicine